=== PATIENT | female | born 1980 | race Caucasian/White ===

== ENCOUNTER → 2020-06-25 | Outpatient (CLI) | payer OTHER | LOC: LAB 13:31 | DX: Z20.828 Contact with and (suspected) exposure to other viral communicable diseases (principal) ==

== ENCOUNTER → 2020-08-01 | Outpatient (CLI) | payer BC, OTHER | LOC: RAD 14:03 | PROVIDERS: ATTEND Family Medicine | DX: M25.561 Pain in right knee (principal); R60.9 Edema, unspecified ==